=== PATIENT | male | born 1975 | race Two or more races ===

== ENCOUNTER 2018-01-17 06:13 | Emergency (ER) | payer MEDICAID ==
[~2018-01-17] VITALS: Ht 185.4 cm; Wt 96.6 kg
[2018-01-17 07:09] LABS: BASOPHIL % 0.5 % (0-2)
[2018-01-17 07:12] LABS: CALCIUM 7.9 mg/dL (8.5-10.1); CARBON DIOXIDE 26.7 mmol/L (21-32); CHLORIDE SERUM 105 mmol/L (98-107); CREATININE SERUM 0.7 mg/dL (0.7-1.3); GFR1 > 60 mL/min; GLUCOSE SERUM 94 mg/dL (74-106); POTASSIUM SERUM 3.6 mmol/L (3.5-5.1); SODIUM SERUM 144 mmol/L (136-145)
[2018-01-17 07:16] LABS: PLATELET COUNT 60 x10^3mcL (130-400); RED CELL DISTRIBUTION WIDTH 15.9 % (11.5-14.5)
[2018-01-17 07:23] LABS: ALBUMIN 3.7 g/dL (3.4-5.0); ALKALINE PHOSPHATASE 94 U/L (46-116); ALT/SGPT 60 U/L (16-63); AMYLASE 47 U/L (25-115); AST/SGOT 113 U/L (15-37); BILIRUBIN TOTAL 0.3 mg/dL (0.20-1.00); CHOLESTEROL 254 mg/dL (<200); HDL CHOLESTEROL 77 mg/dL (40-60); LIPASE 275 IU/L (73-393); MAGNESIUM 1.8 mg/dL (1.8-2.4); T4(THYROXINE) 5.5 ug/dL (4.7-13.3); TOTAL PROTEIN, SERUM 7.5 g/dL (6.4-8.2)
[2018-01-17 10:20] VITALS: BP 110/83
== END 2018-01-17 11:16 | disposition home or self-care (01) ==
LOC: ED 06:13
PROVIDERS: Emergency Medicine
DX: F10.129 Alcohol abuse with intoxication, unspecified (principal); D69.6 Thrombocytopenia, unspecified; K70.9 Alcoholic liver disease, unspecified; Z59.0 Homelessness; G93.41 Metabolic encephalopathy
CPT/HCPCS: 83880; G0480; J3411; J3475; J3490; J7030; Q0092